=== PATIENT | female | born 1955 | race Caucasian/White ===

== ENCOUNTER 2020-06-29 14:04 | Outpatient (CLI) | payer BC, MEDICARE ==
--- NOTE | 2020-06-29 15:11 | ULT ---
THYROID ULTRASOUND: 06/29/20 INDICATIONS: Hypothyroidism. FINDINGS: Both lobes are mildly heterogeneous and slightly prominent in size. Right lobe measurement: 2.3 x 2.0 x 4.6 cm. Left lobe measurement: 2.1 x 1.5 x 4.7 cm. In the right lobe there are three small nodules seen. In the upper lobe, a 2 to 3 mm hypoechoic nodul e. In the mid right lobe, a 4 to 5 mm hypoechoic nodule. In the inferior right lobe, an oblong shaped 4 x 6 x 6 mm hypoechoic solid appearing nodule. In the left lobe there are numerous tiny nodules. The largest in the mid left lobe measuring 6 to 8 m m. A 2 to 3 mm hypoechoic nodule in the inferior left lobe. There are at least three other tiny hypoe choic nodular foci measuring in the 2 mm range. IMPRESSION: Multiple bilateral small thyroid nodules with mildly enlarged heterogeneous thyroid gland. Recommend repeat thyroid ultrasound in six months to confirm stability. POS: [facility]
== END 2020-06-29 14:05 | disposition home or self-care (01) ==
LOC: SCSULT 14:04
PROVIDERS: ATTEND Family Medicine
DX: E05.90 Thyrotoxicosis, unspecified without thyrotoxic crisis or storm (principal); E04.2 Nontoxic multinodular goiter; E04.9 Nontoxic goiter, unspecified
CPT/HCPCS: 76536

== ENCOUNTER 2021-03-31 13:22 | Outpatient (CLI) | payer BC, MEDICARE | END 2021-03-31 13:23 | disposition home or self-care (01) | LOC: BICMAMMO 13:22 | PROVIDERS: ATTEND Family Medicine | DX: Z12.31 Encounter for screening mammogram for malignant neoplasm of breast (principal) | CPT/HCPCS: 77063; 77067 ==

== ENCOUNTER 2022-04-11 13:25 | Outpatient (CLI) | payer BC, MEDICARE | END 2022-04-11 13:26 | disposition home or self-care (01) | LOC: BICMAMMO 13:25 | PROVIDERS: ATTEND Family Medicine | DX: Z12.31 Encounter for screening mammogram for malignant neoplasm of breast (principal) | CPT/HCPCS: 77063; 77067 ==

== ENCOUNTER 2023-05-11 13:31 | Outpatient (CLI) | payer BC, MEDICARE | END 2023-05-11 13:32 | disposition home or self-care (01) | LOC: BICMAMMO 13:31 | PROVIDERS: ATTEND Family Medicine | DX: Z12.31 Encounter for screening mammogram for malignant neoplasm of breast (principal) | CPT/HCPCS: 77063; 77067 ==

== ENCOUNTER 2023-07-13 14:21 | Outpatient (CLI) | payer BC, MEDICARE | END 2023-07-13 14:22 | disposition home or self-care (01) | LOC: BICULT 14:21 | PROVIDERS: ATTEND Nurse Practitioner Family | DX: E04.2 Nontoxic multinodular goiter (principal) | CPT/HCPCS: 76536 ==

== ENCOUNTER 2024-03-27 12:20 | Outpatient (CLI) | payer BC, MEDICARE | END 2024-03-27 12:21 | disposition home or self-care (01) | LOC: BICULT 12:20 | PROVIDERS: ATTEND Family Medicine | DX: E04.1 Nontoxic single thyroid nodule (principal); R79.89 Other specified abnormal findings of blood chemistry | CPT/HCPCS: 76536 ==

== ENCOUNTER 2024-05-16 11:40 | Outpatient (CLI) | payer BC, MEDICARE | END 2024-05-16 11:41 | disposition home or self-care (01) | LOC: BICMAMMO 11:40 | PROVIDERS: ATTEND Family Medicine | DX: Z12.31 Encounter for screening mammogram for malignant neoplasm of breast (principal) | CPT/HCPCS: 77063; 77067 ==

== ENCOUNTER 2024-10-23 09:06 | Outpatient (CLI) | payer BC, MEDICARE | END 2024-10-23 09:07 | disposition home or self-care (01) | LOC: SCSMRI 09:06 | PROVIDERS: ATTEND Family Medicine | DX: I63.9 Cerebral infarction, unspecified (principal) | CPT/HCPCS: 70551 ==